=== PATIENT | female | born 1995 | race African-American/Black ===

== ENCOUNTER 2021-05-13 11:28 | Outpatient (CLI) | payer OTHER ==
[2021-05-13 14:17] VITALS: BP 106/66
--- NOTE | 2021-05-13 16:30 | Ultrasound Report ---
LIMITED OBSTETRICAL ULTRASOUND INDICATION: Decreased movement, SUNSHINE assessment, 36 week 2 day COMPARISON: None FINDINGS: Term is seen in a cephalic position. Cardiac activity was documented with h eart rate of 128 bpm. Placenta is not well evaluated but is posterior and free of the internal cervic al os. Amniotic fluid volume appears qualitatively within normal limits for this stage of a nd SUNSHINE is within normal limits at 9.6 cm. Dating was not performed nor was an anatomic survey debbie snow Signelise Name: Barrett Ibarra MD Signed: 05/13/2021 4:26 PM Workstation Name: [id number]
--- NOTE | 2021-05-13 16:47 | Ultrasound Report ---
ULTRASOUND BIOPHYSICAL PROFILE INDICATION / CLINICAL INFORMATION: DECREASED MOVEMENT - BPP. COMPARISON: No prior imaging available for comparison. FINDINGS: BREATHING MOVEMENT = 0 GROSS BODY MOVEMENT = 2 TONE = 2 QUALITATIVE AMNIOTIC FLUID VOLUME = 2 TOTAL BIOPHYSICAL SCORE = 6/8 PRESENTATION: Cephalic. HEART RATE (beats per minute): 127 IMPRESSION: 1. Single live intrauterine . biophysical profile = 6/8, related to diminished b reathing. Close clinical surveillance is recommended. Signer Name: Godfrey Selby MD Signed: 05/13/2021 4:42 PM Workstation Name: [email or web address]
[2021-05-13] MEDS ORDERED: BETAMET ACET/BETAMET NA PH 6 MG/ML INJ 5 ML MDV IM ONE ×2 (17:24→17:25)
--- NOTE | 2021-05-13 22:03 | Event Note ---
Date: 05/13/21 at 36+ weeks with decreased movement. BPP 8/10 with no breathing. pt given steroids in anticipation of possible delivery. Betamethasone 12mg IM given, first dose. Pt allowed to remain in triage for 6hrs and given diet. Repeat BPP 10/10 and pt discharged home. PTL precaution given and pt admits to feeling baby moving well. All questions encouraged and answered.
--- NOTE | 2021-05-13 22:47 | Ultrasound Report ---
ULTRASOUND BIOPHYSICAL PROFILE INDICATION / CLINICAL INFORMATION: EARLIER TODAY BPP 01/11. Clinical Gestational Age (GA) in weeks, days: 36 weeks 2 days TECHNIQUE: Transabdominal. COMPARISON: Ultrasound performed earlier today FINDINGS: BREATHING MOVEMENT = 2 GROSS BODY MOVEMENT = 2 TONE = 2 QUALITATIVE AMNIOTIC FLUID VOLUME = 2 TOTAL BIOPHYSICAL SCORE = 8/8 HEART RATE (beats per minute): 37 IMPRESSION: 1. Biophysical Score = 8/8 2. This represents interval improvement compared with ultrasound performed earlier today for which th ere was a score of 6 out of 8. Signer Name: Morenita Wick MD Signed: 05/13/2021 10:42 PM Workstation Name: [id number]
[2021-05-14] MEDS ORDERED: BETAMET ACET/BETAMET NA PH 6 MG/ML INJ 5 ML MDV IM SCH (10:00)
== END 2021-05-13 22:13 | disposition home or self-care (01) ==
LOC: TRG 11:28 → APU 11:29 → TRG 22:13
PROVIDERS: ATTEND Obstetrics & Gynecology
DX: Z34.93 Encounter for supervision of normal pregnancy, unspecified, third trimester (principal); Z3A.35 35 weeks gestation of pregnancy; O26.893 Other specified pregnancy related conditions, third trimester; O36.8130 Decreased fetal movements, third trimester, not applicable or unspecified
CPT/HCPCS: 59025; 76815; 76819; J0702; 76816

== ENCOUNTER 2021-05-14 16:55 | Outpatient (CLI) | payer OTHER ==
[2021-05-14] MEDS ORDERED: BETAMET ACET/BETAMET NA PH 6 MG/ML INJ 5 ML MDV IM ONE (17:34)
== END 2021-05-14 18:20 | disposition home or self-care (01) ==
LOC: TRG 16:55 → APU 16:57 → TRG 18:20
PROVIDERS: ATTEND Obstetrics & Gynecology
DX: Z34.93 Encounter for supervision of normal pregnancy, unspecified, third trimester (principal); Z3A.36 36 weeks gestation of pregnancy
CPT/HCPCS: 96372; J0702

== ENCOUNTER 2021-05-18 15:37 | Inpatient (IN) | payer OTHER ==
[2021-05-18] MEDS ORDERED: LACTATED RINGERS 500 ML IV ONE (17:30)
[2021-05-18] MEDS ORDERED: LACTATED RINGERS 1,000 ML IV SCH (17:30)
--- NOTE | 2021-05-18 18:20 | Ultrasound Report ---
ULTRASOUND OBSTETRIC INDICATION / CLINICAL INFORMATION: NEED FOR nrfht. Clinical Gestational Age (GA) in weeks, days: 37, 0 TECHNIQUE: Transabdominal. COMPARISON: 05/13/2021 FINDINGS: Single intrauterine . Biparietal Diameter = 9 cm = 36, 3 weeks, days Head Circumference = 32.7 cm = 37, 1 weeks, days Abdominal Circumference = 30.3 cm = 34, 2 weeks, days Femur Length = 6.9 cm = 35, 4 weeks, days Average Ultrasound Age (AUA) = 35, 6 weeks, days Heart Rate: 176 beats per minute. Estimated Weight in grams (if calculated): 2611 Position: cephalic. Amniotic Fluid Volume: normal Amniotic Fluid Index (SUNSHINE) in cm (if calculated): 9.6. IMPRESSION: 1. Single, living intrauterine with estimated sonographic age of 35, 6 weeks, days. 2. No significant sonographic abnormality. ULTRASOUND BIOPHYSICAL PROFILE INDICATION / CLINICAL INFORMATION: NEED FOR nrfht. COMPARISON: 05/13/2021 FINDINGS: BREATHING MOVEMENT = 2 GROSS BODY MOVEMENT = 2 TONE = 2 QUALITATIVE AMNIOTIC FLUID VOLUME = 2 TOTAL BIOPHYSICAL SCORE = 88 AMNIOTIC FLUID INDEX (cm) = 9.6 PRESENTATION: Cephalic. HEART RATE (beats per minute): 176 IMPRESSION: 1. biophysical profile = 03/13 Signer Name: Zackary Gaytan MD Signed: 05/18/2021 6:16 PM Workstation Name: [id number]
[2021-05-18 19:24] LABS: Basophils % (Auto) 0.2 % (0.0-1.8); Eosinophils % (Auto) 0.1 % (0.0-4.3); Hematocrit 35.4 % (30.3-42.9); Hemoglobin 11.7 gm/dl (10.1-14.3); Lymphocytes # (Auto) 1.4 K/mm3 (1.2-5.4); Lymphocytes % (Auto) 16.5 % (13.4-35.0); Mean Corpuscular HGB Conc 33 % (30-34); Mean Corpuscular Volume 82 fl (79-97); Monocytes # (Auto) 0.4 K/mm3 (0.0-0.8); Monocytes % (Auto) 5.3 % (0.0-7.3); Platelet Count 274 K/mm3 (140-440); Red Blood Count 4.31 M/mm3 (3.65-5.03); Red Cell Distribution Width 14.8 % (13.2-15.2)
[2021-05-18] MEDS ORDERED: fentaNYL 100 MCG/2 ML INJ IV ONE (21:00)
--- NOTE | 2021-05-18 22:24 | Ultrasound Report ---
ULTRASOUND OBSTETRIC LIMITED INDICATION / CLINICAL INFORMATION: SUNSHINE. Clinical Gestational Age (GA) in weeks, days: 37, 0 TECHNIQUE: Transabdominal. COMPARISON: Ultrasound from earlier in the day. FINDINGS: HEART RATE (beats per minute): 138 AMNIOTIC FLUID INDEX (cm) = 13.5 (normal = 7-24 cm) PRESENTATION: Cephalic. ADDITIONAL FINDINGS: None. IMPRESSION: 1. No significant abnormality. Signer Name: Misha Omer DO Signed: 05/18/2021 10:20 PM Workstation Name: [id number]
[2021-05-18] MEDS ORDERED: MORPHINE 4 MG/1 ML INJ IM ONE (23:07)
[2021-05-18] MEDS ORDERED: hydrOXYzine HCL 100 MG/2 ML INJ IM ONE (23:22)
[2021-05-19] MEDS ORDERED: NALOXONE 0.4 MG/1 ML INJ IV PRN (00:36)
[2021-05-19] MEDS ORDERED: OXYTOCIN 10 UNIT/1 ML INJ IM PRN (00:36)
[2021-05-19] MEDS ORDERED: ACETAMINOPHEN 325 MG TAB PO PRN (00:36)
[2021-05-19] MEDS ORDERED: ePHEDrine SULFATE 50 MG/1 ML INJ IV PRN ×2 (00:36→00:46)
[2021-05-19] MEDS ORDERED: miSOPROStol 200 MCG TAB PR PRN (00:36)
[2021-05-19] MEDS ORDERED: MINERAL OIL 30 ML ORAL LIQD PO PRN (00:36)
[2021-05-19] MEDS ORDERED: LOPERAMIDE 2 MG CAP PO PRN (00:36)
[2021-05-19] MEDS ORDERED: BUTORPHANOL 2 MG/1 ML INJ IV PRN (00:36)
[2021-05-19] MEDS ORDERED: TERBUTALINE 1 MG/1 ML INJ SUB-Q PRN (00:36)
[2021-05-19] MEDS ORDERED: ONDANSETRON 4 MG/2 ML INJ IV PRN ×2 (00:36→00:46)
[2021-05-19] MEDS ORDERED: BUTORPHANOL 2 MG/1 ML INJ ONE (00:36)
[2021-05-19] MEDS ORDERED: CARBOPROST TROMETHAMINE 250 MCG/1 ML INJ IM PRN (00:36)
[2021-05-19] MEDS ORDERED: LIDOCAINE (2%) 20 MG/1 ML VIAL 20 ML MDV INFILTRATI ONE (00:36)
[2021-05-19] MEDS ORDERED: METHYLERGONOVINE MALEATE 0.2 MG/ML VIAL IM PRN (00:36)
[2021-05-19] MEDS ORDERED: LACTATED RINGERS 1,000 ML IV SCH (00:45)
[2021-05-19] MEDS ORDERED: LACTATED RINGERS 250 ML IV SOLN IV ONE (00:46)
[2021-05-19] MEDS ORDERED: NalbUPHINE 10 MG/1 ML INJ IV PRN (00:46)
[2021-05-19] MEDS ORDERED: diphenhydrAMINE 50 MG/ML VIAL IV PRN (00:46)
[2021-05-19] MEDS ORDERED: NALOXONE 2 MG/2 ML INJ IV PRN (00:46)
--- NOTE | 2021-05-19 00:46 | History and Physical Report ---
History of Present Illness Date of examination: 05/19/21 Date of admission: 05/19/2021 Chief complaint: Presents from office for observation due to a non-reactive NST. History of present illness: Early entry to care, course uncomplicated Past History Past Medical History: no pertinent history Past Surgical History: no surgical history Family/Genetic History: none Social history: no significant social history, single - Obstetrical History Expected Date of Delivery: 06/08/21 Actual Gestation: 37 Week(s) 1 Day(s) : 1 Medications and Allergies Allergies Allergy/AdvReac Type Severity Reaction Status Date / Time No Known Allergies Allergy Unverified 05/13/21 14:05 Home Medications Medication Instructions Recorded Confirmed Last Taken Type Multivitamin Tablet 05/18/21 05/17/21 History Active Meds: Active Medications Acetaminophen (Acetaminophen 325 Mg Tab) 650 mg PO Q4H PRN PRN Reason: Pain, Mild (1-3) Butorphanol Tartrate (Butorphanol 2 Mg/1 Ml Inj) 2 mg IV Q2H PRN PRN Reason: Pain , Severe (7-10) Carboprost Tromethamine (Carboprost Tromethamine 250 Mcg/1 Ml Inj) 250 mcg IM ONCE PRN PRN Reason: Uterine Bleeding Ephedrine Sulfate (Ephedrine Sulfate 50 Mg/1 Ml Inj) 10 mg IV Q2M PRN PRN Reason: Hypotension Lactated Ringer's (Lactated Ringers) 1,000 mls @ 125 mls/hr IV DIRECT RODRIGO Oxytocin/Sodium Chloride (Pitocin/Ns 30 Unit/500ml) 30 units in 500 mls @ 2 mls/hr IV TITR RODRIGO; Protocol Lactated Ringer's (Lactated Ringers) 1,000 mls @ 125 mls/hr IV DIRECT RODRIGO Oxytocin/Sodium Chloride (Pitocin/Ns 30 Unit/500ml) 30 units in 500 mls @ 40 mls/hr IV TITR RODRIGO; Protocol Lidocaine (Lidocaine (2%) 20 Mg/1 Ml Vial 20 Ml Mdv) 20 ml INFILTRATI ONCE ONE Stop: 05/19/21 00:37 Loperamide HCl (Loperamide 2 Mg Cap) 2 mg PO ONCE PRN PRN Reason: give with Hemabate Methylergonovine Maleate (Methylergonovine Maleate 0.2 Mg/Ml Vial) 0.2 mg IM ONCE PRN PRN Reason: Uterine Bleeding Mineral Oil (Mineral Oil 30 Ml Oral Liqd) 30 ml PO QHS PRN PRN Reason: Constipation Misoprostol (Misoprostol 200 Mcg Tab) 800 mcg VA ONCE PRN PRN Reason: Uterine Bleeding Naloxone HCl (Naloxone 0.4 Mg/1 Ml Inj) 0.1 mg IV Q2MIN PRN PRN Reason: Res Rate </= 8 or 02 SAT < 92% Ondansetron HCl (Ondansetron 4 Mg/2 Ml Inj) 4 mg IV Q8H PRN PRN Reason: Nausea And Vomiting Oxytocin (Oxytocin 10 Unit/1 Ml Inj) 10 unit IM ONCE PRN PRN Reason: Uterine Bleeding Terbutaline Sulfate (Terbutaline 1 Mg/1 Ml Inj) 0.25 mg SUB-Q ONCE PRN PRN Reason: Hyperstimulation/Hypertonicity Review of Systems All systems: negative - Vital Signs Vital signs: Vital Signs Pulse BP Pulse Ox 95 H 117/66 99 05/18/21 16:28 05/18/21 16:28 05/18/21 16:28 Temp Pulse Resp BP Pulse Ox 98.4 F 64 24 120/60 99 05/18/21 22:09 05/19/21 00:39 05/18/21 22:09 05/18/21 19:04 05/19/21 00:39 - Physical Exam Breasts: Positive: normal Cardiovascular: Regular rate Lungs: Positive: Clear to auscultation, Normal air movement Abdomen: Positive: normal appearance, soft, normal bowel sounds Genitourinary (Female): Positive: normal external genitalia, normal perenium Uterus: Positive: enlarged Anus/Rectum: Positive: normal perianal skin - Obstetrical FHR: category 1 Uterine Contraction Monitor Mode: External Cervical Dilatation: 5 ( SROM of a large amount of clear fluid at 2341) Cervical Effacement Percentage: 90 station: -1 Uterine Contraction Pattern: Regular Uterine Tone Measurement Phase: Resting Uterine Contraction Intensity: Moderate Results Result Diagrams: 05/18/21 18:37 Abnormal lab results 05/18/21 05/18/21 Range/Units 18:37 23:20 MCH 27 L (28-32) pg Seg Neutrophils % 77.9 H (40.0-70.0) % Membranes Rupture Positive A (Negative) All other labs normal. Assessment and Plan A: IUP @ 37 1/7 Weeks Category I Tracing SROM Active Labor GBS Negative P: Admit to L&D per Routine Orders Prepare for Epidural Anesthesia
[2021-05-19] MEDS ORDERED: ePHEDrine SULFATE 50 MG/1 ML INJ ONE (00:47)
[2021-05-19] MEDS ORDERED: OXYTOCIN DRIP 30 UNITS/500 ML BAG IV SCH ×2 (01:00)
[2021-05-19] MEDS ORDERED: fentaNYL-BUPIV 2 MCG/ML-0.125% 200 MCG/100 ML BAG EPIDURAL SCH (01:00)
--- NOTE | 2021-05-19 01:16 | Anesthesia Consultation ---
Anesthesia Consult and Med Hx Date of service: 05/19/21 - Airway Anesthetic Teeth Evaluation: Good ROM Head & Neck: Adequate Mental/Hyoid Distance: Adequate Mallampati Class: Class II Intubation Access Assessment: Probably Good - Pulmonary Exam CTA: Yes - Cardiac Exam Cardiac Exam: RRR - Pre-Operative Health Status ASA Pre-Surgery Classification: ASA2 Proposed Anesthetic Plan: Epidural - Pulmonary Hx Smoking: No Hx Asthma: No COPD: No Hx Pneumonia: No Hx Sleep Apnea: No - Cardiovascular System Hx Hypertension: No Hx Heart Attack/AMI: No Hx Angina: No - Central Nervous System Hx Seizures: No Hx Psychiatric Problems: No - Gastrointestinal Hx Gastroesophageal Reflux Disease: No - Endocrine Hx Renal Disease: No Hx End Stage Renal Disease: No Hx Liver Disease: No Hx Insulin Dependent Diabetes: No Hx Non-Insulin Dependent Diabetes: No Hx Hypothyroidism: No Hx Hyperthyroidism: No - Hematic Hx Anemia: No Hx Sickle Cell Disease: No
--- NOTE | 2021-05-19 01:17 | Progress Note ---
Labor Epidural - Labor Epidural Start Time: 00:56 Stop Time: 01:08 Performed by:: JILL CARROLL Procedure: Patient is requesting epidural for labor and pain. H&P, labs were reviewed. Patient IDed, H&P reviewed, all questions and concerns were answered, and consent was signed. Timeout was performed at bedside. Patient in sitting position. Sterile prep and drape was performed. 3ml of 1% lidocaine skin wheal at L[3]- L [4]. 18-gauge [employer] epidural needle was advanced to loss of resistance with air technique 5cm. Negative CSF negative blood. Epidural catheter advanced to [10] centimeters. [negative] Aspiration [negative] test dose. Sterile dressing applied. Patient tolerated procedure.
[2021-05-19] MEDS ORDERED: LANOLIN/ZINC/DIMETHICONE (LANSINOH) 7 GM TP PRN (05:32)
[2021-05-19] MEDS ORDERED: HYDROcodone/ACETAMINOPHEN 5-325 MG TAB PO PRN (05:32)
[2021-05-19] MEDS ORDERED: WITCH HAZEL/ GLYCERIN PAD TP PRN (05:32)
--- NOTE | 2021-05-19 05:39 | Procedure Note ---
OB Delivery Note - Delivery Date of Delivery: 05/19/21 (0508) Surgeon: DILLON CAUSEY Estimated blood loss: 200cc - Vaginal Delivery presentation: vertex Delivery position: OA Intrapartum events: mult.variable deceleratio Delivery induction: none Delivery augmentation: pitocin Delivery monitor: external FHT, external uterine Route of delivery: Delivery placenta: spontaneous Delivery cord: 3 umbilical vessels Episiotomy: none Delivery laceration: 2nd degree Delivery repair: vicryl Anesthesia: epidural Delivery comments: of a live 5'11 female infant over a 2nd degree vaginal laceration under epidural anesthesia with Apgars of 8 and 9 at 0508 on 05/19/2021. directly to maternal abd/chest, skin to skin contact. Delayed cord clamping and cutting; Cord cut by the Father of the Baby. Spontaneous delivery of placenta complete and intact with [place] side presenting at 0512. Fundus is firm and midline located 4 below the U. Lochia is scant. Vaginal laceration repaired with 2-[address]-1. Placenta to pathology. - A at 1 minute: 8 at 5 minutes: 9 Infant Gender: Female (5'11)
[2021-05-19] MEDS: IBUPROFEN 600 MG TAB PO SCH ×3 (08:37→20:53)
[2021-05-19] MEDS: PRENATAL VIT27-FE FUMARATE-FOLIC ACID VIT TAB PO SCH (09:39)
[2021-05-19 14:07] LABS: Hematocrit 29.4 % (30.3-42.9); Hemoglobin 9.9 gm/dl (10.1-14.3)
--- NOTE | 2021-05-19 17:21 | Post Anesthesia Evaluation ---
- Post Anesthesia Evaluation Patient Participated: Yes Airway Patent: Yes Stable Respiratory Function: Yes Nausea/Vomiting: No Temp > 96.8F: Yes Pain Manageable: Yes Adequeate Hydration: Yes Anesthesia Complications: No Block Receding Appropriately: Yes Patient on Ventilator: No
[2021-05-20] MEDS: IBUPROFEN 600 MG TAB PO SCH (05:24)
[2021-05-20] MEDS ORDERED: TETANUS,DIPH,PERTUSS(ACELL) VACCINE 0.5 ML SYRINGE IM ONE (06:00)
[2021-05-20] MEDS: PRENATAL VIT27-FE FUMARATE-FOLIC ACID VIT TAB PO SCH (09:53)
[2021-05-20] MEDS ORDERED: FERROUS SULFATE 325 MG TAB PO SCH (11:00)
[2021-05-20] MEDS ORDERED: FLU VACC QUAD 2021-22(6MOS UP)/PF 60 MCG/0.5 ML SYRINGE IM ONE (12:00)
--- NOTE | 2021-05-20 12:43 | Progress Note ---
Assessment and Plan A: day 1 S/P . Anemia. P: Supplement with iron. Continue routine care. Anticipate discharge home tomorrow if patient continues to do well. Subjective - Subjective Date of service: 05/20/21 Principal diagnosis: day 1 S/P Patient reports: appetite normal, voiding normally, pain well controlled, flatus, ambulating normally, no dizzy ambulation, no nauseated : doing well Objective - Vital Signs Latest vital signs: Vital Signs Temp Pulse Resp BP Pulse Ox Pulse Ox 05/20/21 08:43 97.9 F 87 18 105/54 97 05/20/21 06:24 18 05/20/21 05:24 18 05/20/21 01:32 98.1 F 85 22 112/60 95 05/19/21 21:53 18 05/19/21 20:53 18 05/19/21 20:08 100 05/19/21 16:34 99.0 F 104 H 18 106/69 93 05/19/21 14:17 16 Intake and Output 05/19/21 05/20/21 05/20/21 23:59 07:59 15:59 Intake Total 600 500 Balance 600 500 Intake: Oral 240 Intake, Free Water 360 500 Other: Total, Intake Amount 240 # Voids Void 2 1 - Exam Cardiovascular: Present: Regular rate Lungs: Present: Clear to auscultation Abdomen: Present: normal appearance, soft, normal bowel sounds. Absent: distention, tenderness, guarding, rigidity Uterus: Present: normal, firm, fundal height below umbilicus. Absent: bogginess, tenderness Extremities: Absent: tenderness - Labs Labs: Abnormal lab results 05/19/21 Range/Units 13:27 Hgb 9.9 L (10.1-14.3) gm/dl Hct 29.4 L D (30.3-42.9) %
--- NOTE | 2021-05-20 13:20 | Consultation ---
History of Present Illness - Reason for Consult Consult date: 05/20/21 Reason for consult: high depression score - Chief Complaint Chief complaint: Presents from office for observation due to a non-reactive NST. - History of Present Psychiatric Illness Yudi Smith is a 25 year old female with no psychiatric history. In my interview with the patient, she is calm and cooperative. The patient is naive to psychotropic medications. She denies being depressed and denies having excessive anxiety. The patient denies suicidal/homicidal ideation and denies hallucinations. PAST PSYCHIATRIC HISTORY: Diagnoses: Denies Suicide attempts or Self-harm behavior: Denies Prior psychiatric hospitalizations: Denies Substance Abuse history: Denies Previous psychiatric medications tried: Denies Outpatient treatment: Denies PAST MEDICAL HISTORY: Unknown Family Psychiatric History: None reported or documented SOCIAL HISTORY Marital Status: Single Living Arrangements: ALives with boyfriend Employment Status: Unemployed Access to guns/weapons: Denies Education: 10th grade History of Abuse: Denies Legal History: Denies REVIEW OF SYSTEMS Constitutional: Negative for weight loss ENT: Negative for stridor Respiratory: Negative for cough or hemoptysis All other systems reviewed and are negative MENTAL STATUS EXAMINATION General Appearance and Behavior: Age appropriate, good hygiene, not wearing appropriate clothes, good eye contact, cooperative polite with questioning. Cooperation: Participating/engaged Psychomotor Behavior: Psychomotor normal Mood: "fine" Affect and affective range: Euthymic Thought Process: Goal directed Speech: Normal tone and pace Thought Content: Not suicidal Suicidal Ideation: Denies Homicidal Ideation: Denies Hallucinations: Denies Delusions: Denies Impulse Control: Limited Insight and Judgment: Good insight and Good judgment Memory: Normal Attention: Divided attention impaired Orientation: A/o x 3 Assessment and Plan (1) (2) Treatment Plan Medical: per primary Disposition: Do not recommend acute psychiatric inpatient treatment Will sign off. Thanks Case staffed with Dr. Medina Medications and Allergies Medications and Allergies Allergies Allergy/AdvReac Type Severity Reaction Status Date / Time No Known Allergies Allergy Verified 05/19/21 07:02 Home Medications Medication Instructions Recorded Confirmed Last Taken Type Multivitamin Tablet 1 tab PO DAILY 05/18/21 05/19/21 05/17/21 History Active Meds: Active Medications Hydrocodone Bitart/Acetaminophen (Hydrocodone/Acetaminophen 5-325 Mg Tab) 2 each PO Q6H PRN PRN Reason: Pain, Moderate (4-6) Bisacodyl (Bisacodyl 10 Mg Rect Supp) 10 mg [place] BID PRN PRN Reason: Constipation Ferrous Sulfate (Ferrous Sulfate 325 Mg Tab) 325 mg PO BID RODRIGO Ibuprofen (Ibuprofen 600 Mg Tab) 600 mg PO Q6H [facility] Last Admin: 05/20/21 05:24 Dose: 600 mg Documented by: Multi-Ingredient Ointment (Lanolin/Zinc/Dimethicone (Lansinoh) 7 Gm) 1 applic TP PRN PRN PRN Reason: Sore Nipples Multivitamins/Iron/Calcium ( [id number] Fumarate-Folic Acid Vit Tab) 1 each PO QDAY [facility] Last Admin: 05/20/21 09:53 Dose: 1 each Documented by: Sodium Chloride (Sodium Chloride 0.9% 10 Ml Flush Syringe) 10 ml IV PRN PRN PRN Reason: LINE FLUSH Witch [place]/Glycerin (Witch [place]/ Glycerin Pad) 1 each TP PRN PRN PRN Reason: Hemorrhoid/cleansing/soothing Last Admin: 05/19/21 08:37 Dose: 1 each Documented by: Mental Status Exam - Vital signs Last Vital Signs Temp 97.9 F 05/20/21 08:43 Pulse 87 05/20/21 08:43 Resp 18 05/20/21 08:43 BP 105/54 05/20/21 08:43 Pulse Ox 97 05/20/21 08:43 Results Result Diagrams: 05/19/21 13:27 Abnormal lab results 05/19/21 Range/Units 13:27 Hgb 9.9 L (10.1-14.3) gm/dl Hct 29.4 L D (30.3-42.9) % All other labs normal.
--- NOTE | 2021-05-20 17:45 | Discharge Summary ---
Providers - Providers Date of Admission: 05/19/21 05:32 Date of discharge: 05/20/21 Attending physician: EDWINA WEIR MD Primary care physician: EDWINA WEIR MD Hospitalization Reason for admission: induction of labor Delivery: Laceration: 2nd degree Other procedures: none complications: none Discharge diagnosis: IUP at term delivered [place] baby: female Condition at discharge: Good Disposition: 01 HOME / SELF CARE / HOMELESS - Discharge Diagnoses (1) Term delivered Status: Acute (2) Anemia Status: Acute Plan - Provider Discharge Summary Activity: routine, no sex for 6 weeks, no heavy lifting 4 weeks, no strenuous exercise Diet: routine Instructions: routine Additional instructions: Continue to take your vitamins and iron supplements at home. Follow up at [facility] office in 1-2 weeks. Call your doctor immediately for: * Fever > 100.5 * Heavy vaginal bleeding ( >1 pad per hour) * Severe persistent headache * Shortness of breath * Reddened, hot, painful area to leg or breast - Follow up plan Follow up: EDWINA WEIR MD [Primary Care Provider] - 7 Days Forms: [facility] Discharge Summary
[2021-05-20 19:23] VITALS: BP 114/62
== END 2021-05-20 18:45 | disposition home or self-care (01) | DRG 806 ==
LOC: TRG 15:37 → LD 15:38 → TRG 05-19 05:32 → LD 05-19 05:32 → OB 05-19 08:05
PROVIDERS: ADMIT Obstetrics & Gynecology; ATTEND Obstetrics & Gynecology
PROC: 0KQM0ZZ Repair Perineum Muscle, Open Approach (ICD-10-PCS; principal; 2021-05-19)
PROC: 10E0XZZ Delivery of Products of Conception, External Approach (ICD-10-PCS; 2021-05-19)
PROC: 3E0R3BZ Introduction of Anesthetic Agent into Spinal Canal, Percutaneous Approach (ICD-10-PCS; 2021-05-19)
PROC: 00HU33Z Insertion of Infusion Device into Spinal Canal, Percutaneous Approach (ICD-10-PCS; 2021-05-19)
PROC: 3E0234Z Introduction of Serum, Toxoid and Vaccine into Muscle, Percutaneous Approach (ICD-10-PCS; 2021-05-20)
DX: O76 Abnormality in fetal heart rate and rhythm complicating labor and delivery (principal); D62 Acute posthemorrhagic anemia; Z37.0 Single live birth; Z3A.37 37 weeks gestation of pregnancy; O70.1 Second degree perineal laceration during delivery; Z20.822 Contact with and (suspected) exposure to COVID-19; O90.81 Anemia of the puerperium; Z23 Encounter for immunization
CPT/HCPCS: 36415; 76815; 76816; 76819; 84112; 85014; 85018; 85025; 86850; 86900; 86901; 88307; 90471; 90715; G0378; J2590; J3010; J7120; U0003

== ENCOUNTER 2021-09-27 07:42 | Observation (INO) | payer OTHER ==
--- NOTE | 2021-09-27 08:21 | Anesthesia Consultation ---
Anesthesia Consult and Med Hx Date of service: 09/27/21 - Airway Anesthetic Teeth Evaluation: Good ROM Head & Neck: Adequate Mental/Hyoid Distance: Adequate Mallampati Class: Class II Intubation Access Assessment: Probably Good - Pre-Operative Health Status ASA Pre-Surgery Classification: ASA1 Proposed Anesthetic Plan: General - Pulmonary Hx Smoking: No Hx Asthma: No COPD: No Hx Pneumonia: No Hx Sleep Apnea: No - Cardiovascular System Hx Hypertension: No Hx Heart Attack/AMI: No Hx Angina: No - Central Nervous System Hx Seizures: No Hx Psychiatric Problems: No - Gastrointestinal Hx Gastroesophageal Reflux Disease: No - Endocrine Hx Renal Disease: No Hx End Stage Renal Disease: No Hx Liver Disease: Yes (gallstones) Hx Insulin Dependent Diabetes: No Hx Non-Insulin Dependent Diabetes: No Hx Hypothyroidism: No Hx Hyperthyroidism: No - Hematic Hx Anemia: No Hx Sickle Cell Disease: No - Other Systems Hx Alcohol Use: No Hx Substance Use: No Hx Cancer: No
--- NOTE | 2021-09-27 08:22 | Anesthesia Day of Surgery ---
Anesthesia Day of Surgery - Day of Surgery Patient Examined: Yes Patient H&P Reviewed: Yes Patient is NPO: Yes
[2021-09-27] MEDS: LACTATED RINGERS 1,000 ML IV SCH (08:55)
[2021-09-27] MEDS ORDERED: CELECOXIB 200 MG CAP PO NR (09:00)
[2021-09-27] MEDS ORDERED: MAGNESIUM OXIDE 400 MG TAB PO SCH (09:00)
[2021-09-27] MEDS ORDERED: FAMOTIDINE 20 MG/2 ML INJ IV NR (09:00)
[2021-09-27] MEDS ORDERED: MIDAZOLAM 2 MG/2 ML INJ IV NR (09:00)
[2021-09-27] MEDS ORDERED: ACETAMINOPHEN 500 MG TAB PO SCH (09:00)
[2021-09-27] MEDS ORDERED: HYDROmorphone 1 MG/1 ML INJ ONE (09:16)
[2021-09-27] MEDS ORDERED: ROCURONIUM 50 MG/5 ML INJ IV ONE (09:16)
[2021-09-27] MEDS ORDERED: LIDOCAINE MPF (2%) 20 MG/1 ML VIAL 5 ML ONE (09:16)
[2021-09-27] MEDS ORDERED: propofoL 200 MG/20 ML VIAL IV ONE (09:16)
[2021-09-27] MEDS ORDERED: SODIUM CHLORIDE 0.9% 100 ML ONE (09:37)
[2021-09-27] MEDS ORDERED: BUPIVACAINE/PF (0.25%) 2.5 MG/ML 30 ML VIAL INFILTRATI ONE ×2 (09:37→10:14)
[2021-09-27] MEDS ORDERED: HEPARIN 5,000 UNIT/1 ML VIAL SUB-Q NR (10:00)
[2021-09-27] MEDS ORDERED: ceFAZolin/STERILE WATER 2 GM/20 ML SYRINGE IV NR (10:00)
[2021-09-27] MEDS ORDERED: HEPARIN 5,000 UNIT/1 ML VIAL ONE (10:01)
[2021-09-27] MEDS ORDERED: ceFAZolin/Water 2 GM/20 ML 2 GM/20 ML SYRINGE IV ONE (10:02)
[2021-09-27] MEDS ORDERED: WATER FOR IRRIG STERILE 1,500 ML BOTTLE IR ONE (10:14)
[2021-09-27] MEDS ORDERED: SODIUM CHLORIDE 0.9% IRRIG SOLN 2000 ML IR ONE (10:14)
[2021-09-27] MEDS ORDERED: SODIUM CHLORIDE 0.9% IRR 1,500 ML BOTTLE IR ONE (10:14)
[2021-09-27] MEDS ORDERED: PHENYLEPHRINE/NS 1,000 MCG/10 ML SYRINGE (OR USE) IV ONE (10:17)
[2021-09-27] MEDS ORDERED: dexAMETHasone 20 MG/5 ML VIAL ONE (10:32)
[2021-09-27] MEDS ORDERED: ONDANSETRON 4 MG/2 ML INJ ONE (10:32)
[2021-09-27] MEDS ORDERED: LACTATED RINGERS 1,000 ML ONE (10:40)
[2021-09-27] MEDS ORDERED: IOHEXOL 300 MG/ML 50ML IV ONE (11:15)
[2021-09-27] MEDS ORDERED: SODIUM CHLORIDE 0.9% 100 ML IVPB IV ONE (11:16)
--- NOTE | 2021-09-27 11:58 | Fluoroscopy Report ---
INTRAOPERATIVE FLUOROSCOPY: ABDOMEN INDICATION: RUQ PAIN. TECHNIQUE: Intraoperative spot images were obtained during the procedure. FINDINGS: Intraoperative angiography demonstrates expected opacification of the gallbladder, cystic duct and th e bile ducts. Please see the operative report for further details. Fluoroscopy Time: 1 minute 53 seconds. Fluoroscopy Images: 2. Signer Name: Kenneth Rodrigues MD Signed: 09/27/2021 11:53 AM Workstation Name: [id number]
--- NOTE | 2021-09-27 12:40 | Procedure Note ---
Date of procedure: 09/27/21 Pre-op diagnosis: Chronic cholecystitis Post-op diagnosis: same Procedure: Laparoscopic cholecystectomy with IOC Description of procedure: Pt was placed supine on the OR table. GETA was administered. Abdomen was prepped and draped. Proposed trocar sites were infiltrated with 9 ml of 0.5% Marcaine. A small infraumbilical incision was made, linea alba incised and the peritoneal cavity carefully entered. A Albertina port was inserted into the peritoneal cavity and pneumoperitoneum established. A 10 mm subxiphoid, 5 mm RUQ and 5 mm right lateral ports were inserted into the peritoneal cavity under direct vision. Pt was placed head and right side up. Fundus of the gallbladder was grasped and retracted cephalad. Cystic duct was skeletonized and the critical view of safety obtained. Cystic duct was milked towards the gallbladder. A small incision was made in the cystic duct. The cholangiocatheter was inserted into the cyst duct and an IOC obtained using 20 ml of 1/2 strength contrast. This revealed what appeared to be several stones in the cystic distal to the cystotomy and a filling defect within the distal CBD. Some contrast was able to get around the CBD defect. The cystic duct was again milked from it's junction with the CBD to the cystotomy with expression of 3-4 small stones. The duct was milked again and no additional stones were expressed. The common duct side of the cystic duct was doubly clipped and the cystic duct completely divided. No significant cystic artery was identified. Gallbladder was dissected off of its hepatic fossa with the Bovie. Gallbladder was placed in an endobag and the endobag removed via the infraumbilical fascial defect. The upper abdominal ports were removed with no bleeding from the port entry sites under low pressure. The Albertina port was removed and the pneumoperitoneum released. The infraumbilical fascial defect was closed with 2 interrupted sutures of 0-Vicryl. Skin incisions were closed with running subcuticular sutures of 4-0 Monocryl. Skin glue was applied to all incisions. Pt tolerated the procedure well and was taken to PACU in stable condition. I have explained the management of choledocholithiasis to the pt's and have put a call in to Figueroa Lai MD of [facility] re whether the pt needs to be admitted for a possible ERCP. A stat CMP was also ordered in PACU to see if the pt's LFT's have significantly changed. Findings: Filling defect within the distal CBD c/w stones/sludge. Anesthesia: GETA Surgeon: LOUIS DESAI Estimated blood loss: minimal Pathology: list (Gallbladder and gallstones) Specimen disposition: to lab Condition: stable Disposition: PACU
[2021-09-27] MEDS ORDERED: ONDANSETRON 4 MG/2 ML INJ IV PRN ×2 (12:42→17:23)
[2021-09-27] MEDS: HYDROmorphone 1 MG/1 ML INJ IV PRN ×4 (12:45→18:24)
[2021-09-27 14:23] LABS: Alanine Aminotransferase 23 units/L (7-56); Albumin 3.6 g/dL (3.9-5); Blood Urea Nitrogen 7 mg/dL (7-17); Calcium 8.8 mg/dL (8.4-10.2); Hemolysis Index 14
[2021-09-27 14:25] LABS: BUN/Creatinine Ratio 10
--- NOTE | 2021-09-27 15:21 | Post Anesthesia Evaluation ---
- Post Anesthesia Evaluation Patient Participated: Yes Airway Patent: Yes Stable Respiratory Function: Yes Nausea/Vomiting: No Temp > 96.8F: Yes Pain Manageable: Yes Adequeate Hydration: Yes Anesthesia Complications: No Block Receding Appropriately: Not Applicable Patient on Ventilator: No
--- NOTE | 2021-09-27 16:38 | Event Note ---
Date: 09/27/21 Dr. Lai has seen the pt and plans to proceed with ERCP tomorrow. Dr. Hart has been called and will admit the pt.
--- NOTE | 2021-09-27 17:22 | Consultation ---
History of Present Illness - Reason for Consult Consult date: 09/27/21 Abnormal IOC Requesting physician: LOUIS DESAI - History of Present Illness Ms. Reeder is a 25-year-old woman who underwent cholecystectomy today. Because of abnormal liver enzymes as an outpatient, she underwent an intraoperative cholangiogram which shows a distal filling defect. GI consultation is obtained. Patient had a baby 4 months ago, and states that for the last 3 months she has had intermittent epigastric pain with nausea. She denies any prior known history of liver disease. She was seen in PACU after surgery, and is still benefiting from pain medications that she received during surgery so she has no abdominal pain at present. She is on no medications at home. Past History Past Surgical History: cholecystectomy (09/27/2021) Social history: denies: smoking, alcohol abuse Medications and Allergies Allergies Allergy/AdvReac Type Severity Reaction Status Date / Time No Known Allergies Allergy Verified 09/23/21 14:55 Home Medications Medication Instructions Recorded Confirmed Last Taken Type No Known Home Medications [No 09/23/21 09/23/21 Unknown History Reported Home Medications] Active Meds: Active Medications Acetaminophen (Acetaminophen 500 Mg Tab) 1,000 mg PO PREOP RODRIGO Stop: 09/27/21 21:00 Last Admin: 09/27/21 08:55 Dose: 1,000 mg Cefazolin Sodium (Cefazolin/Sterile Water 2 Gm/20 Ml Syringe) 2 gm IV PREOP NR Stop: 09/27/21 19:00 Celecoxib (Celecoxib 200 Mg Cap) 400 mg PO PREOP NR Stop: 09/27/21 21:00 Last Admin: 09/27/21 08:55 Dose: 400 mg Famotidine (Famotidine 20 Mg/2 Ml Inj) 20 mg IV PREOP NR Stop: 09/27/21 21:00 Last Admin: 09/27/21 08:55 Dose: 20 mg Heparin Sodium (Porcine) (Heparin 5,000 Unit/1 Ml Vial) 5,000 unit SUB-Q PREOP NR Stop: 09/27/21 18:00 Last Admin: 09/27/21 10:07 Dose: 5,000 unit Hydromorphone HCl (Hydromorphone 1 Mg/1 Ml Inj) 0.5 mg IV Q10MIN PRN PRN Reason: Pain , Severe (7-10) Stop: 09/27/21 20:00 Last Admin: 02/22/22 16:01 Dose: 0.5 mg Lactated Ringer's (Lactated Ringers) 1,000 mls @ 100 mls/hr IV DIRECT RODRIGO Last Admin: 09/27/21 08:55 Dose: 100 mls/hr Magnesium Oxide (Magnesium Oxide 400 Mg Tab) 400 mg PO PREOP RODRIGO Stop: 09/27/21 21:00 Last Admin: 09/27/21 08:55 Dose: 400 mg Methocarbamol (Methocarbamol 750 Mg Tab) 1,500 mg PO PREOP RODRIGO Stop: 09/27/21 21:00 Last Admin: 09/27/21 08:55 Dose: 1,500 mg Midazolam HCl (Midazolam 2 Mg/2 Ml Inj) 2 mg IV PREOP NR Stop: 09/27/21 23:59 Last Admin: 09/27/21 09:00 Dose: 2 mg Review of Systems All systems: negative Exam - Constitutional Vitals: Temp Pulse Resp BP Pulse Ox 97.4 F L 73 18 109/62 97 09/27/21 15:30 09/27/21 17:00 09/27/21 17:00 09/27/21 17:00 09/27/21 17:00 General appearance: Present: no acute distress - EENT Eyes: Present: PERRL, EOM intact ENT: hearing intact - Respiratory Respiratory effort: normal Respiratory: bilateral: CTA (Anteriorly) - Cardiovascular Rhythm: regular Heart Sounds: Present: S1 & S2 - Extremities Extremities: No edema - Abdominal General gastrointestinal: Present: soft, normal bowel sounds Results - Labs CBC & Chem 7: 09/27/21 Unknown Labs: Abnormal lab results 09/27/21 Range/Units Unknown Chloride 108.4 H (98-107) mmol/L Carbon Dioxide 21 L (22-30) mmol/L Alkaline Phosphatase 176 H (35-129) units/L Total Protein 5.9 L (6.3-8.2) g/dL Albumin 3.6 L (3.9-5) g/dL - Imaging and Cardiology Abdominal x-ray: report reviewed (Intraoperative cholangiogram reviewed and shows meniscus sign in distal duct consistent with retained stone or debris) Assessment and Plan 1. Abnormal intraoperative cholangiogramconsistent with retained stone or debris in distal common bile duct. Liver enzymes show elevated alkaline phosphatase though the transaminases, which were reportedly abnormal previously, have normalized. -We will check liver enzymes tomorrow and more than likely proceed with ERCP tomorrow.
[2021-09-27] MEDS ORDERED: ACETAMINOPHEN 325 MG TAB PO PRN (17:23)
[2021-09-27] MEDS ORDERED: MORPHINE 2 MG/1 ML INJ IV PRN (17:23)
[2021-09-27] MEDS ORDERED: METOCLOPRAMIDE 10 MG/2 ML INJ IV PRN (17:23)
[2021-09-27] MEDS ORDERED: HYDROmorphone 1 MG/1 ML INJ IV PRN (17:23)
--- NOTE | 2021-09-27 18:03 | History and Physical Report ---
History of Present Illness Date of examination: 09/27/21 Date of admission: September 27, 2021 Chief complaint: S/p cholecystectomy, common bile ducts stone History of present illness: 25-year-old woman who underwent cholecystectomy today--Because of abnormal liver enzymes as an outpatient, she underwent an intraoperative cholangiogram which shows a distal filling defect. Patient has been having intermittent right upper quadrant pain and epigastric pain for the last 4 months associated with vomiting. Patient had a baby 4 months ago She denies any prior known history of liver disease. No significant past medical history Past History Past Medical History: other (Cholecystitis and choledocholithiasis) Past Surgical History: cholecystectomy Social history: lives with family, full code Family history: no significant family history Medications and Allergies Allergies Allergy/AdvReac Type Severity Reaction Status Date / Time No Known Allergies Allergy Verified 09/23/21 14:55 Home Medications Medication Instructions Recorded Confirmed Last Taken Type No Known Home Medications [No 09/23/21 09/23/21 Unknown History Reported Home Medications] Active Meds: Active Medications Acetaminophen (Acetaminophen 500 Mg Tab) 1,000 mg PO PREOP RODRIGO Stop: 09/27/21 21:00 Last Admin: 09/27/21 08:55 Dose: 1,000 mg Cefazolin Sodium (Cefazolin/Sterile Water 2 Gm/20 Ml Syringe) 2 gm IV PREOP NR Stop: 09/27/21 19:00 Celecoxib (Celecoxib 200 Mg Cap) 400 mg PO PREOP NR Stop: 09/27/21 21:00 Last Admin: 09/27/21 08:55 Dose: 400 mg Famotidine (Famotidine 20 Mg/2 Ml Inj) 20 mg IV PREOP NR Stop: 09/27/21 21:00 Last Admin: 09/27/21 08:55 Dose: 20 mg Heparin Sodium (Porcine) (Heparin 5,000 Unit/1 Ml Vial) 5,000 unit SUB-Q PREOP NR Stop: 09/27/21 18:00 Last Admin: 09/27/21 10:07 Dose: 5,000 unit Hydromorphone HCl (Hydromorphone 1 Mg/1 Ml Inj) 0.5 mg IV Q10MIN PRN PRN Reason: Pain , Severe (7-10) Stop: 09/27/21 20:00 Last Admin: 09/27/21 16:01 Dose: 0.5 mg Lactated Ringer's (Lactated Ringers) 1,000 mls @ 100 mls/hr IV DIRECT RODRIGO Last Admin: 09/27/21 08:55 Dose: 100 mls/hr Magnesium Oxide (Magnesium Oxide 400 Mg Tab) 400 mg PO PREOP RODRIGO Stop: 09/27/21 21:00 Last Admin: 09/27/21 08:55 Dose: 400 mg Methocarbamol (Methocarbamol 750 Mg Tab) 1,500 mg PO PREOP RODRIGO Stop: 09/27/21 21:00 Last Admin: 09/27/21 08:55 Dose: 1,500 mg Midazolam HCl (Midazolam 2 Mg/2 Ml Inj) 2 mg IV PREOP NR Stop: 09/27/21 23:59 Last Admin: 09/27/21 09:00 Dose: 2 mg Review of Systems All systems: negative Exam - Constitutional Vitals: Temp Pulse Resp BP Pulse Ox 97.4 F L 73 18 109/62 97 09/27/21 15:30 09/27/21 17:00 09/27/21 17:00 09/27/21 17:00 09/27/21 17:00 General appearance: Present: no acute distress, well-nourished - EENT Eyes: Present: PERRL ENT: hearing intact, clear oral mucosa - Neck Neck: Present: supple, normal ROM - Respiratory Respiratory effort: normal Respiratory: bilateral: CTA - Cardiovascular Heart rate: 78 Rhythm: regular Heart Sounds: Present: S1 & S2. Absent: rub, click - Extremities Extremities: pulses symmetrical, No edema Peripheral Pulses: within normal limits - Abdominal General gastrointestinal: Present: soft, non-tender, non-distended, normal bowel sounds Localized gastrointestinal: tender: RUQ, epigastric periumbilical Female genitourinary: Present: normal - Rectal Rectal Exam: deferred - Integumentary Integumentary: Present: clear, warm, dry - Musculoskeletal Musculoskeletal: gait normal, strength equal bilaterally - Psychiatric Psychiatric: appropriate mood/affect, intact judgment & insight - Neurologic Neurologic: CNII-XII intact, moves all extremities - Allied Health Allied health notes reviewed: nursing, case management Results - Labs CBC & Chem 7: 09/27/21 23:14 09/27/21 Unknown Labs: Laboratory Last Values Sodium 144 mmol/L (137-145) 09/27/21 Unknown Potassium 4.2 mmol/L (3.6-5.0) 09/27/21 Unknown Chloride 108.4 mmol/L (98-107) H 09/27/21 Unknown Carbon Dioxide 21 mmol/L (22-30) L 09/27/21 Unknown Anion Gap 19 mmol/L 09/27/21 Unknown BUN 7 mg/dL (7-17) 09/27/21 Unknown Creatinine 0.7 mg/dL (0.6-1.2) 09/27/21 Unknown Estimated GFR > 60 ml/min 09/27/21 Unknown BUN/Creatinine Ratio 10 % 09/27/21 Unknown Glucose 94 mg/dL (65-100) 09/27/21 Unknown Calcium 8.8 mg/dL (8.4-10.2) 09/27/21 Unknown Total Bilirubin 0.20 mg/dL (0.1-1.2) 09/27/21 Unknown AST 19 units/L (5-40) 09/27/21 Unknown ALT 23 units/L (7-56) 09/27/21 Unknown Alkaline Phosphatase 176 units/L (35-129) H 09/27/21 Unknown Total Protein 5.9 g/dL (6.3-8.2) L 09/27/21 Unknown Albumin 3.6 g/dL (3.9-5) L 09/27/21 Unknown Albumin/Globulin Ratio 1.6 % 09/27/21 Unknown Curiel/IV: Voiding Method Toilet Assessment and Plan Advance Directives: Yes (Full code) VTE prophylaxis?: Chemical Plan of care discussed with patient/family: Yes - Patient Problems (1) Status post cholecystectomy Current Visit: Yes Status: Acute Plan to address problem: Patient is stable postop Pain is minimal (2) Choledocholithiasis with acute cholecystitis Current Visit: Yes Status: Acute Plan to address problem: Filling defect was found on the cholangiogram GI was consulted for possible ERCP Hence being admitted from PACU (3) Malnutrition Current Visit: Yes Status: Chronic Qualifiers: Protein-calorie malnutrition severity: mild Plan to address problem: Dietary supplements when patient resumes eating (4) DVT prophylaxis Current Visit: Yes Status: Acute Plan to address problem: On SCDs and GI prophylaxis (5) Advance care planning Current Visit: Yes Status: Acute Plan to address problem: Disease education conducted, care plan discussed, diagnosis discussed, prognosis good. Patient is full code. Patient acknowledges understanding and agreement with care plan. +30 minutes.
[2021-09-27] MEDS: PIPERACIL/TAZOBACTA 4.5/NS 100 4.5 GM/100 ML VIAL IV SCH ×2 (20:03→22:38)
[2021-09-27] MEDS: HEPARIN 5,000 UNIT/1 ML VIAL SUB-Q SCH (21:13)
[2021-09-27] MEDS: FAMOTIDINE 20 MG/2 ML INJ IV SCH (21:14)
[2021-09-27 23:51] LABS: Hematocrit 33.6 % (30.3-42.9); Hemoglobin 11.5 gm/dl (10.1-14.3); Lymphocytes % (Auto) 12.6 % (13.4-35.0); Mean Corpuscular HGB Conc 34 % (30-34); Mean Corpuscular Volume 81 fl (79-97); Monocytes # (Auto) 0.3 K/mm3 (0.0-0.8); Monocytes % (Auto) 4.2 % (0.0-7.3); Platelet Count 354 K/mm3 (140-440); Red Blood Count 4.17 M/mm3 (3.65-5.03); Red Cell Distribution Width 14.5 % (13.2-15.2)
[2021-09-28 00:07] LABS: Alanine Aminotransferase 23 units/L (7-56); Albumin 3.5 g/dL (3.9-5); Blood Urea Nitrogen 4 mg/dL (7-17); Calcium 8.7 mg/dL (8.4-10.2); Hemolysis Index 2
[2021-09-28 00:08] LABS: BUN/Creatinine Ratio 6
[2021-09-28] MEDS: PIPERACIL/TAZOBACTA 4.5/NS 100 4.5 GM/100 ML VIAL IV SCH ×3 (05:37→21:31)
[2021-09-28] MEDS: LACTATED RINGERS 1,000 ML IV SCH (05:37)
[2021-09-28] MEDS ORDERED: GLUCAGON (HUMAN RECOMBINANT) 1 MG/ML INJ ONE (10:39)
[2021-09-28] MEDS ORDERED: SODIUM CHLORIDE 0.9% 100 ML ONE (10:39)
--- NOTE | 2021-09-28 10:57 | Anesthesia Day of Surgery ---
Anesthesia Day of Surgery - Day of Surgery Patient Examined: Yes Patient H&P Reviewed: Yes (No changes to anesthesia eval on 09/27/21 - ASA1) Patient is NPO: Yes
[2021-09-28] MEDS ORDERED: propofoL 200 MG/20 ML VIAL IV ONE ×2 (10:59→11:54)
[2021-09-28] MEDS ORDERED: KETAMINE/STERILE WATER 50 MG/ML SYRINGE ONE (11:00)
[2021-09-28] MEDS ORDERED: MIDAZOLAM 2 MG/2 ML INJ ONE (11:00)
[2021-09-28] MEDS ORDERED: SODIUM CHLORIDE 0.9% 1000 ML 1,000 ML ONE (11:04)
--- NOTE | 2021-09-28 12:19 | Post Operative Note ---
Pre-op diagnosis: Abnormal IOC, abnormal LFTs Post-op diagnosis: other (Biliary sludge, dilated CBD) Findings: 1. Bulging major papilla with normal mucosa. 2. Normal pancreatic duct 3. CBD dilated to 12 mm, s/p CCY. Sphincterotomy done. 4. Duct swept with return of small amount of yellow amorphous stone debris. Procedure: ERCP with ES and stone removal. Anesthesia: MAC Surgeon: AMISH GARNER Estimated blood loss: minimal Pathology: none Condition: stable Disposition: floor (NPO now, clears after 4 hours.)
--- NOTE | 2021-09-28 13:27 | Fluoroscopy Report ---
INTRAOPERATIVE FLUOROSCOPY: INDICATION / CLINICAL INFORMATION: Abnormal IOC. TECHNIQUE: Intraoperative spot images were obtained during the procedure. FINDINGS: 50 cc of Omnipaque 300 was injected during procedure. Stone present within the common duct near bifur cation appears absent on the post procedure image. Fluoroscopy Time: 0.3 minutes. Total dose: Not listed mGy. Fluoroscopy Images: 7. Signer Name: Silviano Walls II, MD Signed: 09/28/2021 1:20 PM Workstation Name: [id number]
--- NOTE | 2021-09-28 13:27 | Operative Report ---
DATE OF SURGERY: 09/28/2021 ERCP REPORT PROCEDURES: ERCP with sphincterotomy and stone removal with balloon sweep. PREOPERATIVE DIAGNOSES: Abnormal intraoperative cholangiogram and elevated liver enzymes. POSTOPERATIVE DIAGNOSIS: Papillary stenosis, most likely with dilated bile duct and biliary sludge. SEDATION: MAC by Anesthesia. BRIEF HISTORY: The patient is a 25-year-old woman who had abnormal liver enzymes prior to cholecystectomy yesterday. Intraoperative cholangiogram at that time showed distal filling defect. Alkaline phosphatase was elevated at 176. DESCRIPTION OF PROCEDURE: The indications, risks and benefits were explained and consent was obtained. The patient was placed on abdomen on fluoroscopy table and sedated. Video duodenoscope was passed through the mouth and oropharynx into the descending duodenum and then gradually withdrawn with close inspection of mucosa until the major papilla was visualized. Selective cannulation of the pancreatic duct was first initially achieved with sphincterotome and guidewire. After multiple attempts where the biliary system could not be cannulated, a precut papillotomy was done with the tip of the wire in the major papilla and the guidewire within the pancreatic duct. Subsequently, biliary orifice was cannulated and a sphincterotomy completed. FINDINGS: 1. Bulging, but major papilla with normal mucosa. 2. Pancreatic duct is normal in course and caliber. 3. Common bile duct is dilated to 12 mm with no clear filling defects noted. An 8 mm biliary sphincterotomy was completed. Duct was swept with 12 mm balloon with return of small amount of yellow amorphous stone debris. No further filling defects were identified. No leaks were identified. The patient tolerated the procedure well without immediate complications. IMPRESSION: 1. Bulging, major papilla with normal mucosa. 2. Normal pancreatic duct. 3. Dilated common bile duct with biliary debris -- removed after sphincterotomy and balloon sweep. RECOMMENDATIONS: 1. Monitor for complications. 2. Avoid aspirin and nonsteroidals for 2 weeks. 3. Follow up liver enzymes in 2-3 weeks to ensure normalization. TID: [id number] RECEIPT: [id number] [facility] cc: Robbie Ann MD, Dr. Wolf Olivares
[2021-09-28] MEDS: FAMOTIDINE 20 MG/2 ML INJ IV SCH ×2 (13:47→21:33)
[2021-09-28] MEDS: HEPARIN 5,000 UNIT/1 ML VIAL SUB-Q SCH ×2 (13:47→21:34)
[2021-09-28] MEDS: SODIUM CHLORIDE 0.45% 1000 ML 1,000 ML IV SCH (14:00)
[2021-09-28 15:00] LABS: Hemoglobin 11.4 gm/dl (10.1-14.3); Mean Corpuscular HGB Conc 33 % (30-34); Mean Corpuscular Volume 81 fl (79-97); Platelet Count 344 K/mm3 (140-440); Red Blood Count 4.32 M/mm3 (3.65-5.03); Red Cell Distribution Width 14.9 % (13.2-15.2)
[2021-09-28 15:17] LABS: Alanine Aminotransferase 18 units/L (7-56); Albumin 3.3 g/dL (3.9-5); Blood Urea Nitrogen 6 mg/dL (7-17); Calcium 8.9 mg/dL (8.4-10.2); Hemolysis Index 6
[2021-09-28 15:50] LABS: BUN/Creatinine Ratio 9
--- NOTE | 2021-09-28 16:00 | Progress Note ---
Assessment and Plan Assessment and plan: #Acute cholecystitis status post laparoscopic cholecystectomy #Choledocholithiasis Status post laparoscopic cholecystectomy by general surgery on 09/27/2021. Concern for filling defect of common bile duct. Gastroenterology consulted for ERCP. ERCP performed on 09/28/2021 with removal of yellow stones and sludge. Appreciate recs. Started on clear liquid diet. Continue as needed analgesic. Continue to monitor #Mild protein caloric malnutrition Continue dietary supplementation #Advanced care planning -Disease education conducted, care plan discussed, diagnoses discussed, prognosis discussed, and patient acknowledges understanding with care plan -Time: +30 min #Discharge planning - Patient is pending clearance by GI and general surgery - Case management has been made aware. - Discharge is tentatively tomorrow Disposition Plan: Pending possible discharge home tomorrow Total Time Spent with Patient (Minutes): 45 minutes History Interval history: Status post laparoscopic cholecystectomy last night with no complications. Hospitalist Physical - Constitutional Vitals: Temp Pulse Resp BP Pulse Ox 98.3 F 62 20 116/81 96 09/28/21 11:00 09/28/21 12:45 09/28/21 12:45 09/28/21 12:45 09/28/21 12:45 General appearance: Present: no acute distress, well-nourished - EENT Eyes: Present: PERRL, EOM intact ENT: hearing intact, clear oral mucosa, dentition normal - Neck Neck: Present: supple, normal ROM - Respiratory Respiratory effort: normal Respiratory: bilateral: CTA - Cardiovascular Rhythm: regular Heart Sounds: Present: S1 & S2 - Extremities Extremities: no ischemia, pulses intact, pulses symmetrical, No edema, normal t emperature, normal color, Full ROM Peripheral Pulses: within normal limits - Abdominal General gastrointestinal: soft, tender (Appropriate tenderness at incision sites), non-distended, normal bowel sounds - Integumentary Integumentary: Present: clear, warm, dry - Psychiatric Psychiatric: appropriate mood/affect, intact judgment & insight, memory intact, cooperative - Neurologic Neurologic: CNII-XII intact, moves all extremities - Allied Health Allied health notes reviewed: nursing Results - Labs CBC & Chem 7: 09/28/21 14:14 09/28/21 14:14 Labs: Laboratory Last Values WBC 7.8 K/mm3 (4.5-11.0) 09/28/21 14:14 RBC 4.32 M/mm3 (3.65-5.03) 09/28/21 14:14 Hgb 11.4 gm/dl (10.1-14.3) 09/28/21 14:14 Hct 35.0 % (30.3-42.9) 09/28/21 14:14 MCV 81 fl (79-97) 09/28/21 14:14 MCH 26 pg (28-32) L 09/28/21 14:14 MCHC 33 % (30-34) 09/28/21 14:14 RDW 14.9 % (13.2-15.2) 09/28/21 14:14 Plt Count 344 K/mm3 (140-440) 09/28/21 14:14 Lymph % (Auto) 12.6 % (13.4-35.0) L 09/27/21 23:14 [place] % (Auto) 4.2 % (0.0-7.3) 09/27/21 23:14 Eos % (Auto) 0.0 % (0.0-4.3) 09/27/21 23:14 Baso % (Auto) 0.0 % (0.0-1.8) 09/27/21 23:14 Lymph # (Auto) 1.0 K/mm3 (1.2-5.4) L 09/27/21 23:14 [place] # (Auto) 0.3 K/mm3 (0.0-0.8) 09/27/21 23:14 Eos # (Auto) 0.0 K/mm3 (0.0-0.4) 09/27/21 23:14 Baso # (Auto) 0.0 K/mm3 (0.0-0.1) 09/27/21 23:14 Seg Neutrophils % 83.2 % (40.0-70.0) H 09/27/21 23:14 Seg Neutrophils # 6.7 K/mm3 (1.8-7.7) 09/27/21 23:14 Sodium 143 mmol/L (137-145) 09/28/21 14:14 Potassium 4.9 mmol/L (3.6-5.0) 09/28/21 14:14 Chloride 106.6 mmol/L (98-107) 09/28/21 14:14 Carbon Dioxide 24 mmol/L (22-30) 09/28/21 14:14 Anion Gap 17 mmol/L 09/28/21 14:14 BUN 6 mg/dL (7-17) L 09/28/21 14:14 Creatinine 0.7 mg/dL (0.6-1.2) 09/28/21 14:14 Estimated GFR > 60 ml/min 09/28/21 14:14 BUN/Creatinine Ratio 9 % 09/28/21 14:14 Glucose 86 mg/dL (65-100) 09/28/21 14:14 Calcium 8.9 mg/dL (8.4-10.2) 09/28/21 14:14 Total Bilirubin 0.20 mg/dL (0.1-1.2) 09/28/21 14:14 AST 17 units/L (5-40) 09/28/21 14:14 ALT 18 units/L (7-56) 09/28/21 14:14 Alkaline Phosphatase 152 units/L (35-129) H 09/28/21 14:14 Total Protein 5.5 g/dL (6.3-8.2) L 09/28/21 14:14 Albumin 3.3 g/dL (3.9-5) L 09/28/21 14:14 Albumin/Globulin Ratio 1.5 % 09/28/21 14:14 Curiel/IV: Voiding Method Toilet Active Medications - Current Medications Current Medications: Generic Name Dose Route Start Last Admin Trade Name Freq PRN Reason Stop Dose Admin Acetaminophen 650 mg 09/27/21 17:23 Acetaminophen 325 Mg Tab PO Q4H PRN Pain MILD(1-3)/Fever >100.5/GONZALEZ Famotidine 20 mg 09/27/21 22:00 09/28/21 13:47 Famotidine 20 Mg/2 Ml Inj IV Not Given BID RODRIGO Heparin Sodium (Porcine) 5,000 unit 09/27/21 22:00 09/28/21 13:47 Heparin 5,000 Unit/1 Ml Vial SUB-Q Not Given Q12HR RODRIGO Hydromorphone HCl 0.5 mg 09/27/21 17:23 Hydromorphone 1 Mg/1 Ml Inj IV Q3H PRN Pain , Severe (7-10) Lactated Ringer's 1,000 mls @ 100 mls/hr 09/27/21 08:30 09/28/21 05:37 Lactated Ringers IV 100 mls/hr DIRECT RODRIGO Administration Sodium Chloride 1,000 mls @ 75 mls/hr 09/27/21 18:00 09/28/21 14:00 Nacl 0.45% 1000 Ml IV 75 mls/hr DIRECT RODRIGO Administration Piperacillin Sod/Tazobactam Sod 4.5 gm in 100 mls @ 200 mls/hr 09/27/21 18:00 09/28/21 13:56 Zosyn/Ns 4.5gm/100ml IV 200 mls/hr Q8HR RODRIGO Administration Protocol Metoclopramide HCl 10 mg 09/27/21 17:23 Metoclopramide 10 Mg/2 Ml Inj IV Q6H PRN Nausea And Vomiting Morphine Sulfate 2 mg 09/27/21 17:23 Morphine 2 Mg/1 Ml Inj IV Q4H PRN Pain, Moderate (4-6) Ondansetron HCl 4 mg 09/27/21 17:23 Ondansetron 4 Mg/2 Ml Inj IV Q3H PRN Nausea And Vomiting Sodium Chloride 10 ml 09/27/21 22:00 09/27/21 21:14 Sodium Chloride 0.9% 10 Ml Flush Syringe IV 10 ml BID RODRIGO Administration Sodium Chloride 10 ml 09/27/21 17:23 Sodium Chloride 0.9% 10 Ml Flush Syringe IV PRN PRN LINE FLUSH
[2021-09-29] MEDS: SODIUM CHLORIDE 0.45% 1000 ML 1,000 ML IV SCH (03:23)
[2021-09-29] MEDS: PIPERACIL/TAZOBACTA 4.5/NS 100 4.5 GM/100 ML VIAL IV SCH (05:10)
[2021-09-29 05:27] LABS: Basophils % (Auto) 0.5 % (0.0-1.8); Eosinophils # (Auto) 0.1 K/mm3 (0.0-0.4); Eosinophils % (Auto) 1.7 % (0.0-4.3); Hematocrit 35.9 % (30.3-42.9); Hemoglobin 11.6 gm/dl (10.1-14.3); Lymphocytes # (Auto) 3.8 K/mm3 (1.2-5.4); Lymphocytes % (Auto) 51.5 % (13.4-35.0); Mean Corpuscular HGB Conc 32 % (30-34); Mean Corpuscular Volume 81 fl (79-97); Monocytes # (Auto) 0.3 K/mm3 (0.0-0.8); Monocytes % (Auto) 4.7 % (0.0-7.3); Platelet Count 319 K/mm3 (140-440); Red Blood Count 4.42 M/mm3 (3.65-5.03)
[2021-09-29 05:44] LABS: Alanine Aminotransferase 19 units/L (7-56); Albumin 3.3 g/dL (3.9-5); Blood Urea Nitrogen 5 mg/dL (7-17); Calcium 8.5 mg/dL (8.4-10.2); Hemolysis Index 1
[2021-09-29 05:50] LABS: BUN/Creatinine Ratio 7
[2021-09-29] MEDS: HEPARIN 5,000 UNIT/1 ML VIAL SUB-Q SCH (09:01)
[2021-09-29] MEDS: FAMOTIDINE 20 MG/2 ML INJ IV SCH (09:01)
--- NOTE | 2021-09-29 12:06 | Post Anesthesia Evaluation ---
- Post Anesthesia Evaluation Patient Participated: Yes Airway Patent: Yes Stable Respiratory Function: Yes Nausea/Vomiting: No Temp > 96.8F: Yes Pain Manageable: Yes Adequeate Hydration: Yes Anesthesia Complications: No Other Comments: planned to be discharged
--- NOTE | 2021-09-29 12:37 | Discharge Summary ---
Providers - Providers Date of Admission: 09/27/21 17:23 Date of discharge: 09/29/21 Attending physician: KAREN SHORE MD 09/27/21 17:23 Consult to Physician [CONS] Routine Comment: Consulting Provider: AMISH GARNER Physician Instructions: Reason For Exam: choledocholithiasis 09/28/21 07:08 Consult to Physician [CONS] Routine Comment: Consulting Provider: LOUIS DESAI Physician Instructions: Reason For Exam: S/p cholecystectomy Primary care physician: EDWINA WEIR MD Hospitalization Reason for admission: Choledocholithiasis Condition: Good Pertinent studies: Reviewed Procedures: Laparoscopic cholecystectomy; ERCP Hospital course: Patient is a 25-year-old female with no significant past medical history who underwent laparoscopic cholecystectomy with general surgery on 09/27/2021 without any complications. There was concern for choledocholithiasis due to a visualized filling defect within the distal CBD. The patient was admitted for ERCP with gastroenterology; it was performed on 09/28/2021 without any complications. The patient will follow up with general surgery in the outpatient setting in approximately 2 weeks. Patient is medically cleared for discharge. Disposition: 01 HOME / SELF CARE / HOMELESS Final Discharge Diagnosis (Prints w/discharge instructions): Acute cholecystitis status post laparoscopic cholecystectomy; choledocholithiasis Time spent for discharge: 45 min Core Measure Documentation - Palliative Care Palliative Care/ Comfort Measures: Not Applicable - Core Measures Any of the following diagnoses?: none Exam - Constitutional Vitals: Temp Pulse Resp BP Pulse Ox 98.1 F 67 18 105/71 97 09/29/21 05:57 09/29/21 05:57 09/29/21 05:57 09/29/21 05:57 09/29/21 07:00 General appearance: Present: no acute distress, well-nourished, obese - EENT Eyes: Present: PERRL, EOM intact ENT: hearing intact, clear oral mucosa, dentition normal - Neck Neck: Present: supple, normal ROM - Respiratory Respiratory effort: normal Respiratory: bilateral: CTA - Cardiovascular Rhythm: regular Heart Sounds: Present: S1 & S2 - Extremities Extremities: no ischemia, pulses intact, pulses symmetrical, No edema, normal temperature, normal color, Full ROM Peripheral Pulses: within normal limits - Abdominal General gastrointestinal: Present: soft, non-tender, non-distended, normal bowel sounds Female genitourinary: Present: deferred - Rectal Rectal Exam: deferred - Integumentary Integumentary: Present: clear, warm, dry - Musculoskeletal Musculoskeletal: strength equal bilaterally - Psychiatric Psychiatric: appropriate mood/affect, intact judgment & insight, memory intact, cooperative - Neurologic Neurologic: CNII-XII intact, moves all extremities - Allied Health Allied health notes reviewed: nursing Plan Activity: advance as tolerated Diet: low fat Additional Instructions: Patient is a 25-year-old female with no significant past medical history who underwent laparoscopic cholecystectomy with general surgery on 09/27/2021 without any complications. There was concern for choledocholithiasis due to a visualized filling defect within the distal CBD. The patient was admitted for ERCP with gastroenterology; it was performed on 09/28/2021 without any complications. The patient will follow up with general surgery in the outpatient setting in approximately 2 weeks. Patient is medically cleared for discharge. Care Plan Goals: Patient is medically cleared for discharge. Assessment: Patient is a 25-year-old female with no significant past medical history who underwent laparoscopic cholecystectomy with general surgery on 09/27/2021 without any complications. There was concern for choledocholithiasis due to a visualized filling defect within the distal CBD. The patient was admitted for ERCP with gastroenterology; it was performed on 09/28/2021 without any complications. The patient will follow up with general surgery in the outpatient setting in approximately 2 weeks. Patient is medically cleared for discharge. Follow up with: EDWINA WEIR MD [Primary Care Provider] - 7 Days LOUIS DESAI MD [Staff Physician] - 14 Days Forms: Work/School Release Form Prescriptions: oxyCODONE /ACETAMINOPHEN [Percocet 5/325] 1 tab PO Q6HR PRN #20 tablet PRN Reason: Pain
[2021-09-29 12:52] VITALS: BP 107/68
== END 2021-09-29 13:59 | disposition home or self-care (01) ==
LOC: OR 07:42 → 3A 17:23
PROVIDERS: ADMIT Internal Medicine; ATTEND Student in an Organized Health Care Education/Training Program
DX: K80.00 Calculus of gallbladder with acute cholecystitis without obstruction (principal); E44.1 Mild protein-calorie malnutrition; K80.50 Calculus of bile duct without cholangitis or cholecystitis without obstruction; E46 Unspecified protein-calorie malnutrition; Z68.26 Body mass index [BMI] 26.0-26.9, adult; Z68.27 Body mass index [BMI] 27.0-27.9, adult; Z90.49 Acquired absence of other specified parts of digestive tract; Z79.899 Other long term (current) drug therapy; Z98.890 Other specified postprocedural states
CPT/HCPCS: 36415; 43264; 47563; 74300; 74330; 80053; 81025; 85025; 85027; 88304; 96365; 96366; 96372; 96375; 96376; C1726; G0378; J0690; J1100; J1170; J1644; J2250; J2370; J2405; J2543; J2704; J3490; J7030; J7120; Q9967; Q0162; J1610